=== PATIENT | female | born 1985 | race Caucasian/White ===

== ENCOUNTER 2017-05-07 09:01 | Emergency (ER) | payer OTHER ==
[~2017-05-07] VITALS: Ht 175.3 cm; Wt 87.0 kg
[2017-05-07] MEDS ORDERED: ACYCLOVIR 400 MG TABLET PO ONE (10:30)
[2017-05-07] MEDS ORDERED: PREDNISONE 20MG TABLET PO ONE (10:30)
[2017-05-07 11:25] VITALS: BP 93/60
== END 2017-05-07 11:30 | disposition home or self-care (01) ==
LOC: ER 10:15
DX: G51.0 Bell's palsy (principal); E11.9 Type 2 diabetes mellitus without complications; Z88.0 Allergy status to penicillin
CPT/HCPCS: 99283; J7512